=== PATIENT | male | born 1945 | race Two or more races ===

== ENCOUNTER 2024-04-19 09:00 | Inpatient (IN) | payer OTHER ==
[~2024-04-19] VITALS: Ht 213.4 cm; Wt 71.7 kg
[2024-04-19] MEDS ORDERED: JANUVIA100 MG PO (10:58)
[2024-04-19] MEDS ORDERED: ZETIA10 MG PO (10:59)
[2024-04-19] MEDS ORDERED: GLIPIZIDE XL10 MG PO (10:59)
[2024-04-19] MEDS ORDERED: PENTOXIFYLLINE400 MG PO (11:00)
[2024-04-19] MEDS ORDERED: SINVASTATIN (11:01)
[2024-04-19] MEDS ORDERED: NASAL MIST126 ML (11:01)
[2024-04-19] MEDS ORDERED: CENTRUM ADULTS1 EACH PO (11:01)
[2024-04-19 11:02] VITALS: BP 116/72
[2024-04-19 11:14] LABS: HEMATOCRIT 40.7 % (39.0-48.0); MEAN CELL VOLUME 90.5 fL (80.0-100.00); MEAN CORPUSCULAR HEMOGLOBIN 31.1 pg (27.00-32.0); MEAN CORPUSCULAR HGB CONC 34.4 g/dl (32.0-36.0); PLATELET COUNT 181 K/uL (150-450); RED CELL DISTRIBUTION WIDTH 14.6 % (11.5-14.5)
[2024-04-19 11:27] LABS: PARTIAL THROMBOPLASTIN TIME 26.7 SECONDS (22.0-34.0); PROTHROMBIN TIME 10.9 SECONDS (9.0-11.5)
[2024-04-19 11:45] LABS: ALBUMIN 3.7 gm/dL (3.4-5.0); BILIRUBIN TOTAL 0.56 mg/dL (0.3-1.2); CALCIUM 8.9 mg/dL (8.5-10.1); CREATININE SERUM 1.12 mg/dL (0.70-1.30); GFR 63.08; GLOBULINA 3.4 G/DL (2.4-3.5); POTASSIUM 3.92 mEq/L (3.5-5.1); TOTAL PROTEIN 7.1 gm/dL (6.4-8.2)
[2024-04-19 12:25] LABS: URINE APPEARANCE Clear; URINE BILIRRUBIN Negative (NEGATIVE); URINE BLOOD Negative; URINE COLOR Yellow; URINE GLUCOSE Negative (NEGATIVE); URINE KETONE Negative (NEGATIVE); URINE LEUKOCYTE Negative; URINE NITRATE Negative; URINE PROTEIN Negative (NEGATIVE); URINE UROBILINOGEN 0.2 E.U./dl
[2024-04-19 12:29] LABS: URINE BACTERIA 11.3 uL (0.0-1933); URINE EPITHELIAL CELLS 1.6 uL (0.0-38.8); URINE WBC 2.6 uL (0.0-23.2)
[2024-04-19 12:44] LABS: URINE CAST 0.15 uL (0.0-1.40); URINE RBC 0.4 uL (0.0-20.8)
[2024-04-23] MEDS ORDERED: LIDOCAINE HCL 1%/EPINEPHRINE 20ML VIAL IJ ONE (07:45)
[2024-04-23] MEDS ORDERED: BUPIVACAINE HCL 30 ML VIAL IJ ONE (07:45)
[2024-04-23] MEDS ORDERED: CEFTRIAXONE SODIUM 2,000 MG VIAL IV ONE (07:45)
[2024-04-23] MEDS ORDERED: METRONIDAZOLE/SODIUM CHLORIDE 500 MG/100 ML PIGGYBACK IV ONE (07:45)
[2024-04-23] MEDS ORDERED: GABAPENTIN 300 MG CAPSULE PO SCH (09:00)
[2024-04-23] MEDS ORDERED: RINGERS SOLUTION,LACTATED 1,000 ML IV SCH (09:00)
[2024-04-23] MEDS ORDERED: TAMSULOSIN HCL 0.4 MG CAP PO SCH (09:00)
[2024-04-23] MEDS ORDERED: MORPHINE SULFATE 4 MG/ML CARTRIDGE IV PRN (09:00)
[2024-04-23] MEDS ORDERED: LACTOBACILLUS ACIDOPHILUS 1 CAP CAP PO SCH (09:00)
[2024-04-23] MEDS ORDERED: CIPROFLOXACIN IN 5 % DEXTROSE 400 MG/200 ML PIGGYBAG IV SCH (09:00)
[2024-04-23] MEDS ORDERED: HYOSCYAMINE SULFATE 0.125 MG TAB.SUBL SL SCH (09:00)
[2024-04-23] MEDS ORDERED: METRONIDAZOLE/SODIUM CHLORIDE 500 MG/100 ML PIGGYBACK IV SCH (09:00)
[2024-04-23] MEDS ORDERED: FAMOTIDINE/PF 20 MG/2 ML VIAL IV PUSH SCH (09:00)
[2024-04-23] MEDS ORDERED: OxyCODONE HCL 5 MG TABLET (ROXICODONE) PO PRN (09:00)
[2024-04-23] MEDS ORDERED: ONDANSETRON HCL 2 MG/ML VIAL IV PRN (09:00)
[2024-04-23] MEDS ORDERED: ACETAMINOPHEN 500 MG GEL..CAP PO SCH (12:00)
[2024-04-23] MEDS ORDERED: INSULIN LISPRO 1,000 UNIT/10 ML UNITS SUBCUTANEO PRN (14:45)
[2024-04-23] MEDS ORDERED: DEXTROSE 50 % IN WATER 0.5 G/ML DISP.SYRIN IV PRN (14:45)
[2024-04-23 16:00] VITALS: BP 128/70; O2SAT 98
[2024-04-23] MEDS ORDERED: POLYETHYLENE GLYCOL 3350 17 GM BLIST.PACK PO SCH (17:00)
[2024-04-24 00:50] VITALS: BP 130/56; O2SAT 95
[2024-04-24 09:46] VITALS: BP 133/72; O2SAT 97
[2024-04-24] MEDS ORDERED: INTESTINEX680 M1 PO (12:13)
[2024-04-24] MEDS ORDERED: POLY119PG PO (12:13)
[2024-04-24] MEDS ORDERED: ENOXAPARIN SODIUM 40 MG/0.4 ML SYRINGE SUBCUTANEO SCH (17:00)
[2024-04-25] MEDS ORDERED: ENOXAPARIN SODIUM 40 MG/0.4 ML SYRINGE SUBCUTANEO SCH (09:00)
== END 2024-04-24 13:53 | disposition home or self-care (01) | DRG 330 ==
LOC: SURH 04-23 05:45 → O/R 04-23 05:45 → SURG 04-23 07:00 → EDBD 04-23 09:00 → SURH 04-23 11:35
PROVIDERS: ADMIT Surgery; ATTEND Surgery
PROC: 0DTNFZZ Resection of Sigmoid Colon, Via Natural or Artificial Opening With Percutaneous Endoscopic Assistance (ICD-10-PCS; principal; 2024-04-23 07:00)
PROC: 0DBP0ZZ Excision of Rectum, Open Approach (ICD-10-PCS; 2024-04-24)
PROC: 0DUR0JZ Supplement Anal Sphincter with Synthetic Substitute, Open Approach (ICD-10-PCS; 2024-04-24)
PROC: 3E0T3BZ Introduction of Anesthetic Agent into Peripheral Nerves and Plexi, Percutaneous Approach (ICD-10-PCS; 2024-04-24)
DX: K62.3 Rectal prolapse (principal); K62.5 Hemorrhage of anus and rectum; K62.89 Other specified diseases of anus and rectum; R15.9 Full incontinence of feces; Z20.822 Contact with and (suspected) exposure to COVID-19

== ENCOUNTER 2025-01-14 09:15 | Inpatient (IN) | payer OTHER ==
[~2025-01-14] VITALS: Ht 170.2 cm; Wt 68.0 kg
[~2025-01-14 09:15] MED LIST: CENTRUM ADULTS1 EACH PO; GLIPIZIDE XL10 MG PO; INTESTINEX680 M1 PO; JANUVIA100 MG PO; NASAL MIST126 ML; PENTOXIFYLLINE400 MG PO; POLY119PG PO; SINVASTATIN; ZETIA10 MG PO
[2025-01-14 10:45] VITALS: BP 116/68
[2025-01-14 11:02] LABS: BASO % 0.5 % (0.1-1.2); EOS # 0.10 (0.04-0.54); EOS % 1.6 % (0.7-7.0); LYMPH # 0.97 (1.18-3.74); LYMPH % 15.2 % (19.3-53.1); MEAN PLATELET VOLUME 8.70 fl (9.4-12.4); MONO # 0.53 (0.24-0.82); MONO % 8.3 % (4.7-12.5); NEUT # 4.73 (1.56-6.13); NEUT % 74.2 % (34.0-71.1); RED CELL DISTRIBUTION WIDTH 13.5 % (11.6-14.4)
[2025-01-14 11:21] LABS: INR 1.01
[2025-01-14 11:44] LABS: ALT/SGPT 15.0 U/L (12-78); AST/SGOT 16.0 U/L (15-37); BILIRUBIN TOTAL 0.24 mg/dL (0.3-1.2); BUN CREA RATIO 16.0 (7.0-25.0); CREATININE SERUM 1.25 mg/dL (0.70-1.30); GFR 55.57; GLOBULINA 3.1 G/DL (2.4-3.5); GLUCOSE FASTING 120.0 mg/dL (65-100); OSMOLALITY SERUM 287.0 MOSM/KG (275-295)
[2025-01-14 12:45] LABS: URINE APPEARANCE Clear; URINE BILIRRUBIN Negative (NEGATIVE); URINE BLOOD Negative; URINE COLOR Yellow; URINE GLUCOSE Negative (NEGATIVE); URINE KETONE Negative (NEGATIVE); URINE LEUKOCYTE Negative; URINE NITRATE Negative; URINE PROTEIN Trace (NEGATIVE); URINE UROBILINOGEN 0.2 E.U./dl
[2025-01-14 12:52] LABS: URINE BACTERIA 13.1 uL (0.0-1933); URINE EPITHELIAL CELLS 2.9 uL (0.0-38.8); URINE WBC 3.3 uL (0.0-23.2)
[2025-01-14 13:46] LABS: URINE CAST 0.00 uL (0.0-1.40); URINE RBC 0.4 uL (0.0-20.8)
[2025-01-21] MEDS ORDERED: METRONIDAZOLE/SODIUM CHLORIDE 500 MG/100 ML PIGGYBACK IV ONE (06:37)
[2025-01-21] MEDS ORDERED: CEFTRIAXONE SODIUM 2,000 MG VIAL ONE (06:37)
[2025-01-21] MEDS ORDERED: HYDROGEN PEROXIDE 473 ML BOTTLE TOP ONE (07:22)
[2025-01-21] MEDS ORDERED: LIDOCAINE HCL 1%/EPINEPHRINE 20ML VIAL IJ ONE (07:24)
[2025-01-21] MEDS ORDERED: HEMOSTATIC MATRIX 1 KIT KIT TOP ONE (07:24)
[2025-01-21] MEDS ORDERED: POVIDONE-IODINE 118 ML BOTT TOP ONE (07:24)
[2025-01-21] MEDS ORDERED: DIBUCAINE 30 GM TUBE ONE (07:24)
[2025-01-21] MEDS ORDERED: BUPIVACAINE HCL/MPF 0.5% 30ML VIAL ONE (07:24)
[2025-01-21] MEDS ORDERED: OxyCODONE HCL 5 MG TABLET (ROXICODONE) PO PRN (13:30)
[2025-01-21] MEDS ORDERED: ONDANSETRON HCL 2 MG/ML VIAL IV PRN (13:30)
[2025-01-21] MEDS ORDERED: MORPHINE SULFATE 4 MG/ML CARTRIDGE IV PRN (13:30)
[2025-01-21] MEDS ORDERED: RINGERS SOLUTION,LACTATED 1,000 ML IV SCH (13:30)
[2025-01-21 13:44] VITALS: BP 147/72
[2025-01-21] MEDS ORDERED: TAMSULOSIN HCL 0.4 MG CAP PO NR (16:00)
[2025-01-21] MEDS ORDERED: CIPROFLOXACIN IN 5 % DEXTROSE 400 MG/200 ML PIGGYBAG IV SCH (17:00)
[2025-01-21] MEDS ORDERED: LACTOBACILLUS ACIDOPHILUS 1 CAP CAP PO SCH (17:00)
[2025-01-21] MEDS ORDERED: HYOSCYAMINE SULFATE 0.125 MG TAB.SUBL SL SCH (17:00)
[2025-01-21] MEDS ORDERED: METRONIDAZOLE/SODIUM CHLORIDE 500 MG/100 ML PIGGYBACK IV SCH (17:00)
[2025-01-21 17:05] VITALS: BP 126/67; O2SAT 96
[2025-01-21] MEDS ORDERED: ACETAMINOPHEN 500 MG GEL..CAP PO SCH (18:00)
[2025-01-21] MEDS ORDERED: FAMOTIDINE/PF 20 MG/2 ML VIAL IV PUSH SCH (21:00)
[2025-01-22 00:05] VITALS: BP 129/64; O2SAT 96
[2025-01-22 07:37] LABS: BASO % 0.6 % (0.1-1.2); EOS # 0.07 (0.04-0.54); EOS % 1.0 % (0.7-7.0); LYMPH # 0.96 (1.18-3.74); LYMPH % 13.6 % (19.3-53.1); MEAN PLATELET VOLUME 8.90 fl (9.4-12.4); MONO # 0.77 (0.24-0.82); MONO % 10.9 % (4.7-12.5); NEUT # 5.19 (1.56-6.13); NEUT % 73.6 % (34.0-71.1); RED CELL DISTRIBUTION WIDTH 13.6 % (11.6-14.4)
[2025-01-22 08:05] LABS: BUN CREA RATIO 10.0 (7.0-25.0); CREATININE SERUM 0.93 mg/dL (0.70-1.30); GFR 77.98; GLUCOSE FASTING 149.0 mg/dL (65-100); OSMOLALITY SERUM 285.0 MOSM/KG (275-295)
[2025-01-22] MEDS ORDERED: TAMSULOSIN HCL 0.4 MG CAP PO SCH (09:00)
[2025-01-22 09:39] VITALS: BP 110/57; O2SAT 98
[2025-01-22] MEDS ORDERED: SOD FERRIC GLUC COMPLX/SUCROSE 62.5 MG in 0.9 % SODIUM CHLORIDE 50 ML IV SCH (13:02)
[2025-01-22] MEDS ORDERED: Cyanocobalamin/Mecobalamin 1 TAB.SL SL SCH (13:03)
[2025-01-22] MEDS ORDERED: POTASSIUM CHLORIDE 20MEQ/100ML H2O PB IV NR (13:05)
[2025-01-22] MEDS ORDERED: TRAM1TAB98 PO (13:51)
[2025-01-22] MEDS ORDERED: INTESTINEX680 M1 PO (13:52)
[2025-01-22] MEDS ORDERED: PEPCID AC20 MG PO (13:52)
[2025-01-22] MEDS ORDERED: NAPH,MB-DB/K PH,MBDB 1 PKT PACKET PO NR (14:00)
[2025-01-22] MEDS ORDERED: POTASSIUM PHOS,M-BASIC-D-BASIC 3 MM/ML VIAL IV NR (14:00)
[2025-01-22] MEDS ORDERED: POTASSIUM CHLORIDE 8 MEQ TABLET PO NR (14:00)
[2025-01-22] MEDS ORDERED: ENOXAPARIN SODIUM 40 MG/0.4 ML SYRINGE SUBCUTANEO SCH (17:00)
[2025-01-23] MEDS ORDERED: ENOXAPARIN SODIUM 40 MG/0.4 ML SYRINGE SUBCUTANEO SCH (09:00)
== END 2025-01-22 15:05 | disposition home or self-care (01) | DRG 334 ==
LOC: O/R 01-21 05:20 → SURG 01-21 09:15 → SURH 01-21 10:16 → O/R 01-21 13:34 → SURH 01-21 13:36 → SURG 01-21 17:00 → SURH 01-22 15:05
PROVIDERS: ADMIT Surgery; ATTEND Surgery
PROC: 0DTP0ZZ Resection of Rectum, Open Approach (ICD-10-PCS; 2025-01-21)
PROC: 3E0T3BZ Introduction of Anesthetic Agent into Peripheral Nerves and Plexi, Percutaneous Approach (ICD-10-PCS; 2025-01-21)
PROC: 0DBNFZZ Excision of Sigmoid Colon, Via Natural or Artificial Opening With Percutaneous Endoscopic Assistance (ICD-10-PCS; principal; 2025-01-21 17:00)
DX: K62.3 Rectal prolapse (principal); K62.89 Other specified diseases of anus and rectum; R15.9 Full incontinence of feces